=== PATIENT | male | born 1960 | race Caucasian/White ===

== ENCOUNTER 2024-04-17 17:57 | Emergency (ER) | payer MEDICAID ==
[~2024-04-17] VITALS: Ht 177.8 cm; Wt 103.6 kg
[2024-04-17 18:28] VITALS: BP 129/90; PULSE 92; O2SAT 98
[2024-04-17] MEDS ORDERED: ketorolac trometh. 30mg/ml inj. IM ONE (19:35)
[2024-04-17 19:43] VITALS: RESP 18
[2024-04-17] MEDS: ketorolac tromethamine 15mg/ml inj. IM ONE (19:43)
[2024-04-17] MEDS ORDERED: MELO-100 PO (19:49)
[2024-04-17 19:52] VITALS: TEMP 97.9
== END 2024-04-17 20:02 | disposition home or self-care (01) ==
LOC: ER 17:58
DX: S20.212A Contusion of left front wall of thorax, initial encounter (principal); W22.8XXA Striking against or struck by other objects, initial encounter; Y93.89 Activity, other specified; Y92.89 Other specified places as the place of occurrence of the external cause; Y99.8 Other external cause status
CPT/HCPCS: 71101; 96372; 99283; J1885

== ENCOUNTER 2024-06-13 08:55 | Emergency (ER) | payer MEDICAID ==
[~2024-06-13] VITALS: Ht 175.3 cm; Wt 86.2 kg
[~2024-06-13 08:55] MED LIST: MELO-100 PO
[2024-06-13] MEDS: acetaminophen 325mg tablet PO ONE (10:23)
[2024-06-13] MEDS: ondansetron 4mg rapidly disintigrating tab PO ONE (10:23)
[2024-06-13] MEDS: ketorolac trometh. 30mg/ml inj. IM ONE (10:24)
[2024-06-13] MEDS ORDERED: RIME75TA PO (10:42)
[2024-06-13 11:14] VITALS: BP 158/84; PULSE 73; RESP 16; TEMP 97.9; O2SAT 98
== END 2024-06-13 11:17 | disposition home or self-care (01) ==
LOC: ER 08:55
DX: G43.909 Migraine, unspecified, not intractable, without status migrainosus (principal); Z79.2 Long term (current) use of antibiotics
CPT/HCPCS: 96372; 99283; J1885

== ENCOUNTER 2024-10-16 08:47 | Emergency (ER) | payer MEDICAID ==
[~2024-10-16] VITALS: Ht 177.8 cm; Wt 96.1 kg
[~2024-10-16 08:47] MED LIST changes: +RIME75TA PO
[2024-10-16 08:51] VITALS: BP 151/87; PULSE 68; RESP 16; TEMP 98.2; O2SAT 98
[2024-10-16] MEDS ORDERED: AZIT-164 PO (10:19)
[2024-10-16] MEDS ORDERED: BENZ-38 PO (10:19)
== END 2024-10-16 10:27 | disposition home or self-care (01) ==
LOC: ER 08:47
DX: J22 Unspecified acute lower respiratory infection (principal); F17.200 Nicotine dependence, unspecified, uncomplicated; Z79.2 Long term (current) use of antibiotics; Z79.899 Other long term (current) drug therapy; Z20.822 Contact with and (suspected) exposure to COVID-19
CPT/HCPCS: 36415; 87502; 87503; 87811; 99283

== ENCOUNTER 2024-11-21 11:23 | Emergency (ER) | payer MEDICARE, MEDICAID ==
[~2024-11-21] VITALS: Ht 177.8 cm; Wt 100.1 kg
[2024-11-21 11:26] VITALS: BP 143/79; PULSE 65; RESP 16; TEMP 98; O2SAT 95
[2024-11-21] MEDS: triamcinolone acetonide 40mg/ml inj IM ONE (13:04)
== END 2024-11-21 13:11 | disposition home or self-care (01) ==
LOC: ER 11:23
DX: L23.7 Allergic contact dermatitis due to plants, except food (principal)
CPT/HCPCS: 96372; 99283; J3301

== ENCOUNTER 2025-02-15 10:10 | Emergency (ER) | payer MEDICARE, MEDICAID ==
[~2025-02-15] VITALS: Ht 177.8 cm; Wt 105.0 kg
[2025-02-15] MEDS ORDERED: IBUP-1985 PO (10:51)
[2025-02-15] MEDS ORDERED: PRED20TA PO (11:06)
[2025-02-15] MEDS ORDERED: VALA100031 PO (11:06)
[2025-02-15] MEDS ORDERED: ERYT1OIN6 EACHEYE (11:06)
[2025-02-15] MEDS: valacyclovir 500mg tablet PO ONE (11:10)
[2025-02-15] MEDS: predniSONE 20 mg tablet PO ONE (11:11)
[2025-02-15 11:39] VITALS: BP 141/82; PULSE 68; RESP 16; TEMP 99; O2SAT 99
== END 2025-02-15 11:41 | disposition home or self-care (01) ==
LOC: ER 10:10
DX: G51.0 Bell's palsy (principal)
CPT/HCPCS: 99283; J7512

== ENCOUNTER 2025-09-21 12:43 | Emergency (ER) | payer MEDICAID, MEDICARE ==
[~2025-09-21] VITALS: Ht 177.8 cm; Wt 101.5 kg
[~2025-09-21 12:43] MED LIST changes: +IBUP600T52 PO; +VALA100031 PO
--- NOTE | 2025-09-21 13:17 | ELECTROCARDIOGRAPH REPORT ---
[facility] Test Date: 2025-09-21 Test Time: 13:15:18 Pat Name: PRAVEENA HAYS Department: EMERGENCY ROOM Room: Gender: M Router Operator: DARLIN : 1960 Requested By: EM MORTON Order Number: [id number] Reading MD: Dr. TAYLER Dubon Measurements Intervals [place] Rate: 77 P: 65 IA: 168 QRS: 43 QRSD: 103 T: 56 QT: 384 QTc: 435 Interpretive Statements Sinus rhythm Electronically Signed On 09-23-2025 19:23:[address] TAYLER Dubon Please click the below link to view image of tracing.
[2025-09-21 15:34] LABS: MEAN PLATELET VOLUME 8.8 FL (7.4-10.4); RED CELL DISTRIBUTION WIDTH 13.1 % (11.5-14.5)
[2025-09-21 15:43] VITALS: BP 133/89; PULSE 97; RESP 18; TEMP 97.6; O2SAT 100
[2025-09-21 15:47] LABS: CREATININE 1.10 MG/DL (0.60-1.10); TOTAL CARBON DIOXIDE 26.9 MMOL/L (24-32); eCRCL 70 ML/MIN; eGFR 67 ML/MIN
--- NOTE | 2025-09-21 16:34 | Physician Documentation ---
History of Present Illness ~ Chief Complaint: Dizziness Stated Complaint: LIGHT HEADED Time Seen by MD: 14:53 Mode of Arrival: EMS HPI A 65-year-old male presents to the emergency department for evaluation of near- syncope. He is brought in by ambulance because he felt that you can dry. Reports this morning while at work he was bent over and when he stood up he passed out. He broke out into a sweat had no associated shortness a breath or chest pain. No prior history of the same. Does endorse that he did not eat and that he drinks very little water. Denies illicit drug use or recent alcohol use. There was a family history of coronary artery disease. He has no history of hypertension and/or dyslipidemia. His diaphoresis subsided in the proximally 10 minutes. Medication Reconciliation Allergies: Coded Allergies: No Known Allergies (Unverified , 09/21/25) Scheduled Ibuprofen (Ibuprofen), 1 TAB PO TID, (Reported) Meloxicam* (Meloxicam*), 1 TAB PO DAILY Valacyclovir HCl (Valacyclovir), 1 TAB PO Q12H Scheduled PRN Rimegepant Sulfate (Nurtec Odt), 1 TAB PO QDAY PRN PRN for headache Physical Exam Vital Signs: RN Vital Signs have been reviewed: Yes, Temperature: 97.6, Source: Temporal, Heart Rate: 97, Respiratory Rate: 18, BP: 133/89, Pulse Oximetry: 100, Weight: 101.500 Oxygen Flow Rate: 0 General Appearance: alert, WD/WN, no apparent distress Neck: non-tender Head: normal Pupils/EOM/Fundus: PERRLA Ear: normal Respiratory: lungs clear Chest: no accessory muscle use Cardiovascular: normal peripheral pulses, regular rate, rhythm, no edema, no gallop, no JVD, no murmur Gastrointestinal: normal palpation Skin: warm/dry Orientation / Memory / CN: oriented x3 Cerebellar Function: normal Lymphatic: no adenopathy Psych: appropriate Progress Results/Orders Results/Orders Orders - VANESSA BEVERLY PAC Normal Saline 1000ml (0.9% Sodium Chlori (09/21/25 17:30) Completed Orders - VANESSA BEVERLY PAC BMP (09/21/25 14:52) Cbc/Diff (09/21/25 14:52) Hs Troponin I W Calculations (09/21/25 16:14) Vital Signs 09/21/25 09/21/25 09/21/25 12:47 15:21 15:43 Temp 97.6 97.6 Pulse 80 97 Resp 16 18 B/P (MAP) 133/89 (104) Pulse Ox 99 100 O2 Flow Rate 0 0 Laboratory Tests Test 09/21/25 15:22 White Blood Count 10.1 Red Blood Count 5.62 Hemoglobin 16.8 Hematocrit 49.2 Mean Corpuscular Volume 87.6 Mean Corpuscular Hemoglobin 29.8 Mean Corpuscular Hemoglobin Concent 34.1 Red Cell Distribution Width 13.1 Platelet Count 243 Mean Platelet Volume 8.8 Neutrophils (%) (Auto) 77.2 H Lymphocytes (%) (Auto) 15.5 L Monocytes (%) (Auto) 5.8 Eosinophils (%) (Auto) 1.1 Basophils (%) (Auto) 0.4 Neutrophils # (Auto) 7.8 H Lymphocytes # (Auto) 1.6 Monocytes # (Auto) 0.6 Eosinophils # (Auto) 0.1 Basophils # (Auto) 0.0 CBC Comment Sodium Level 138 Potassium Level 4.3 Chloride Level 104 Carbon Dioxide Level 26.9 Anion Gap 7 L Blood Urea Nitrogen 12 Creatinine 1.10 Estimated GFR/1.73 m2 67 BUN/Creatinine Ratio 10.9 Glucose Level 106 H Calcium Level 8.7 Troponin I High Sensitivity 5 Albumin 4.5 Chemistry Comments Medical Decision Making Additional information obtaine: N/A Findings Examination & history warrants serology evaluation to screen for electrolyte imbalance, tropanemia and/or MARLEY. EKG shows normal sinus rhythm. Patient is non postural in the emergency department. Has received IV normal saline hydration in his pending re-evaluation. Symptoms are not consistent with positional or sensorial vertigo. Patient's safely discharged in the emergency department after laboratory review and IV hydration. Understands that follow up in the establish care with local primary care physician. Differential Dx:Considerations: Include: anemia, dehydration, dysrhythmia, electrolyte imbalance, hypoglycemia, hypovolemia, myocardial infarction, pulmonary embolus, vertigo central, vertigo peripheral Departure Disposition: HOME / SELF CARE / HOMELESS Impression: Primary Impression: Orthostatic hypotension Condition: Improved Discharge Instructions: Near-Syncope Additional Instructions: In the emergency department you had labs obtained which were all reassuring. Please aligned herself with a local primary care physician for further health care maintenance. You received IV hydration. Please stay well hydrated and return to the emergency department if needed. Thank you for visiting [facility]. Referrals: NO PRIMARY CARE PROVIDER (PCP) Education Educated: Patient Educated regarding: diagnosis, treatment, prognosis, need for follow up Signature Scribe Signature: . Attestation: . VANESSA BEVERLY PAC Sep 21, 2025 16:34
[2025-09-21] MEDS: normal saline 1000ml 1,000 ML IV ONE (17:35)
== END 2025-09-21 17:46 | disposition home or self-care (01) ==
LOC: ER 12:44
DX: I95.1 Orthostatic hypotension (principal)
CPT/HCPCS: 36415; 80048; 84484; 85025; 93005; 99284; J7030